=== PATIENT | female | born 1970 | race Two or more races ===

== ENCOUNTER → 2020-07-08 | Day surgery (SDC) | payer OTHER ==
[~2020-07-08] VITALS: Ht 162.6 cm; Wt 87.5 kg
[2020-07-08] VITALS (10 sets, daily range): BP systolic 101–144; BP diastolic 54–72
[~2020-07-08] MED LIST: Atropine Sulfate 0.4mg/ml inj IVP PRN; DOCUSATE SODIU100 MG ORAL; DiphenhydrAMINE 50mg/ml Inj IVP PRN; HYDROcodone/Acetamin 5/325 tab ORAL PRN; HYDROcodone/Acetamin 7.5/325 tab ORAL PRN; Hydromorphone 0.5mg/0.5ml inj IVP PRN; Ketorolac 30mg Inj IV PRN; LORazepam Inj 2mg/ml 1ml IV PRN; LR 1000ml 1,000 ML IVLG SCH; LR 1000ml ONE; Labetalol 5mg/ml 20ml vial IV PRN; Lidocaine 1% Plain 30 ml INJ ONE; Meperidine 25mg/1ml Inj (FOR RIGORS ONLY) IV PRN; Metoclopramide 10mg/2ml Inj IVP PRN; Midazolam 2mg/2ml Inj IVP PRN; fentaNYL 100 mcg/2 mL IV PRN; oxyCODONE HCL/Acetaminophen 5/325mg ORAL PRN
--- NOTE | 2020-07-08 08:47 | Short Stay Surgery H&P ---
History of Present Illness History of Present Illness Chief Complaint Abdominal pains/GERDs/heartburn KEVIN Hensley is a 49 year old female who was admitted on for GERD/abdominal pain Patient History Allergies: Coded Allergies: No Known Allergies (Unverified , 07/04/20) PAST MEDICAL HISTORY: (1) Hypertension (2) History of Review of Systems Cardiovascular: Reports: hypertension Respiratory: Reports: no symptoms Skeletal: Reports: trauma Gastrointestinal: Reports: gastro esophageal reflux disease Genitourinary: Reports: no symptoms Neurologic: Reports: no symptoms Endocrine: Reports: no symptoms Physical Exam Vital Signs Last Vital Signs Date Time Temp Pulse Resp B/P (MAP) Pulse Ox O2 Delivery O2 Flow Rate FiO2 07/08/20 08:41 Room Air Skin: normal HENT: normal Heart: normal Lungs: normal Abdomen: abnormal Extremities: normal Genitourinary: normal Plan Plan of Care Upper GI. endoscopy and biopsy. Preop Interventions None. Summary of Findings See the reports. Attestation Are the patient's medical conditions optimized for surgery? Attestation Response: yes Rigo Chaparro MD Jul 08, 2020 08:47
--- NOTE | 2020-07-08 08:48 | Pre-Procedure Note/Attestation ---
Pre-Procedure Note/Attestation Complete Prior to Procedure Planned Procedure: left Procedure Narrative: Examination of the upper GI tract via endoscopy with obtaining biopsy. Indications for Procedure Pre-Operative Diagnosis: R/O Gastritis/peptic ulcer/esophagitis Attestation I attest that I discussed the nature of the procedure; its benefits; risks and complications; and alternatives (and the risks and benefits of such alternatives), prior to the procedure, with the patient (or the patient's legal practice representative). I attest that, if there was a reasonable possibility of needing a blood transfusion, the patient (or the patient's legal practice representative) was given the [place] Department [employer] Services standardized written summary, pursuant to the Yovani Philippe Blood Safety Act ([place] Health and Safety Code # 1645, as amended). I attest that I re-evaluated the patient just prior to the surgery and that there has been no change in the patient's H&P, except as documented below: Rigo Chaparro MD Jul 08, 2020 08:48
--- NOTE | 2020-07-08 08:49 | Discharge Instructions ---
Discharge Instructions Discharge Instructions Follow up with: Make appointment to see the doctor in office in two weeks. For Congestive Heart Failure Reminder Report to your physician any weight gain of 5 pounds or more in one week. Rigo Chaparro MD Jul 08, 2020 08:49
--- NOTE | 2020-07-08 09:18 | Anethesia Preoperative Eval ---
Anesthesia Pre-op PMH/ROS General Date of Evaluation: Jul 08, 2020 Time of Evaluation: 09:43 Anesthesiologist: Melani ASA Score: ASA 3 Mallampati Score Class I : Soft palate, uvula, fauces, pillars visible Class II: Soft palate, uvula, fauces visible Class III: Soft palate, base of uvula visible Class IV: Only hard plate visible Mallampati Classification: Class II Surgeon: Krysta Diagnosis: Abd Pain Surgical Procedure: EGD/Colonoscopy Anesthesia History: none Family History: no anesthesia problems Allergies: Coded Allergies: No Known Allergies (Unverified , 07/04/20) Medications: see eMAR Patient NPO?: Yes Past Medical History Cardiovascular: Reports: HTN Gastrointestinal/Genitourinary: Reports: GERD, other - Fatty Liver HEENT: Reports: other - Asigmatism Hematology/Immune: Reports: anemia PSxH Narrative: C/S Anesthesia Pre-op Phys. Exam Physician Exam Last Vital Signs Date Time Temp Pulse Resp B/P (MAP) Pulse Ox O2 Delivery O2 Flow Rate FiO2 07/08/20 08:41 Room Air 07/08/20 08:41 97.0 56 18 144/54 97 Constitutional: NAD Neurologic: CN 2-12 intact Cardiovascular: RRR Respiratory: CTA Gastrointestinal: S/NT/ND Airway Exam Mallampati Score: Class II MO: full ROM: limited Teeth: missing, intact Anesthesia Pre-op A/P Risk Assessment & Plan Assessment: ASA 3 Plan: TIVA Status Change Before Surgery: No Donavon Polo MD Jul 08, 2020 09:18
--- NOTE | 2020-07-08 09:18 | Immediate Post-Op Evaluation ---
Immediate Post-Op Evalulation Immediate Post-Op Evalulation Procedure: EGD Date of Evaluation: Jul 08, 2020 Time of Evaluation: 10:28 IV Fluids: 600 LR Blood Products: 0 Estimated Blood Loss: 1 Urinary Output: 0 Blood Pressure Systolic: 111 Blood Pressure Diastolic: 71 Pulse Rate: 63 Respiratory Rate: 16 O2 Sat by Pulse Oximetry: 100 Temperature (Fahrenheit): 97.4 Pain Score (1-10): 1 Nausea: No Vomiting: No Complications 0 Patient Status: awake, reacts, patent, none Hydration Status: adequate Donavon Polo MD Jul 08, 2020 09:18
--- NOTE | 2020-07-08 09:19 | 48 Hour Post Anesthesia Eval ---
Post Anesthesia Evaluation Procedure: EGD Date of Evaluation: Jul 08, 2020 Time of Evaluation: 12:38 Blood Pressure Systolic: 127 0: 73 Pulse Rate: 69 Respiratory Rate: 18 Temperature (Fahrenheit): 98 O2 Sat by Pulse Oximetry: 100 Airway: patent Nausea: No Vomiting: No Pain Intensity: 1 Hydration Status: adequate Cardiopulmonary Status: Stable Mental Status/LOC: patient returned to baseline Follow-up Care/Observations: 0 Post-Anesthesia Complications: 0 Follow-up care needed: ready to discharge Donavon Polo MD Jul 08, 2020 09:19
--- NOTE | 2020-07-08 09:53 | Endoscopy Procedure Note ---
Endoscopy Procedure Note General Indication for Procedure: Abdominal pains/GERDs. Procedures Performed: EGD - Mild gastritis;otherwise normal upper GI. endoscopy, biopsy ws taken from gastric body. Specimen: yes Pt Tolerated Procedure Well: Yes Estimated Blood Loss: none Anesthesia Anesthesiologist: Dr. Davis Anesthesia: moderate sedation Medications Medication Given: see anesthesia record Inserted Devices Implant(s) used?: No Quality Quality of Bowel Preparation: Excellent Was there any complications?: No GI Core Measures 50 yrs or older w/o bx or poly: Not Applicable 10yrs. F/U recommended: Not Applicable If not recommended, why?: Med reason:<3 yrs.: System Reason:<3 yrs.: Rigo Chaparro MD Jul 08, 2020 09:53
--- NOTE | 2020-07-08 11:44 | Procedure Note ---
DATE OF PROCEDURE: 07/08/2020 SURGEON: Rigo Chaparro MD. PROCEDURE: Esophagogastroduodenoscopy with biopsy. PREOPERATIVE DIAGNOSES: Abdominal pain, epigastric pain, history of chronic reflux, questionable status of Helicobacter pylori infection. POSTOPERATIVE DIAGNOSIS: Evidence of mild gastritis otherwise completely normal upper GI endoscopy. Biopsy was taken per random from gastric body. MEDICATION USED: Per Dr. Polo anesthesiologist. INSTRUMENT: GIF Olympus upper GI video endoscope. DESCRIPTION OF PROCEDURE: The patient after arriving at the endoscopy unit, was told about risks and benefits of the procedure, which she accepted and signed informed consent. She was then put on the left lateral decubitus position. After adequate IV sedation, the scope was gently passed through the cricopharyngeal area, was lodged into the upper esophagus and was gradually advanced towards gastroesophageal junction. The entire length of esophagus looked normal. No evidence of any pathology such as exudate, stricture, polyps, tumors etc. was found. GE junction also looked completely normal and no evidence of Almaraz's mucosa or hiatal hernia noted. At this time, the scope was advanced into the stomach. Gastric cavity was distended with insufflation of air revealing basically minimal erythema over the gastric mucosa consistent with very mild gastritis but there was no ulcers, tumors, polyps, bleeding site etc. The examination was done gradually from the fundus all the way to the antrum and pre-pyloric area. At this time, one random biopsy from gastric body was obtained. The retroflexion maneuver was also applied and the area of the gastroesophageal junction was examined in a retrograde fashion, which revealed no other abnormalities. Finally, scope was passed through the pylorus. First and second portion of duodenum were found to be completely normal. At this time, the scope was pulled out and the procedure was terminated. The patient tolerated the procedure well and left the endoscopy room in a good condition. Rigo Chaparro M.D. DR: Nando JOB#: [id number] CC:
--- NOTE | 2020-07-08 13:29 | Pre-op HX & Phy Repo 2 SIG ---
DATE OF ADMISSION: 07/08/2020 HISTORY OF PRESENT ILLNESS: The patient is a 49-year-old non-Bahamian speaking female who I am seeing at this time before undergoing the procedure for upper GI endoscopy for which she has been scheduled to receive for evaluation of gastrointestinal symptoms that she has had subsequent to her work injury. The patient at this time reports that she is experiencing gastroesophageal acid reflux consistent with GERD for which I had the opportunity of examining her a few weeks ago in the office as well. At this time, she reports that the pain is radiating towards her chest area and they are intermittent in nature as she has been trying to constantly take medications such as Prevacid which seems to be helpful and make her gastroesophageal reflux more controlled. She reports that she does not have the tolerance for taking spicy foods as her symptoms become more aggravated. 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 At this time, she denies having vomited bright red blood or passing bright red blood per rectum. There has been no history of black stools or melena. She denies having had any changes in her weight as her appetite seems to be normal. She however complains of a recent history of constipation for which she takes laxative with good response. However, she has not had any rectal bleeding. She reports also that she has been seen by other physician by name of Dr. Giovanni Ba who has been following her for gastrointestinal conditions and found that there has been a history of Helicobacter pylori infection in the past but it is not clear if she has ever been treated adequately or not. The purpose of this examination today is to evaluate the stomach with gastric biopsy to look for this organism. The patient denies having any gastrointestinal conditions before being injured at job site and receiving multiple medications for a long period of time including analgesics such as tramadol and also ibuprofen, etc. PAST MEDICAL HISTORY: The patient denies having had any major medical problems in the past such as peptic ulcer disease, gastritis, hepatitis, pneumonitis, meningitis, pancreatitis, etc. She denies having a history of diabetes or thyroid conditions. She denies having a history of high blood pressure. PAST SURGICAL HISTORY: The patient has had 1 C section. ALLERGIES: Nonsignificant. FAMILY HISTORY: Both parents have . She is single with 3 children who are normal. There was no familial conditions. HABITS: She denies drinking alcohol, smoking cigarettes, does not use illicit drugs. MEDICATIONS: List of present medications, the patient is taking Prevacid 15 mg on a daily basis, Aleve 200 mg twice a day for bodily pain subsequent to work injury and also she takes Geeta-Colace for constipation. REVIEW OF SYSTEMS: Basically history of present illness. She denies having any chest pain, shortness of breath. However, she complains of experiencing pain over her neck and shoulders and she has also had injuries over her lower back area as well. Psychologically, she denies having any psychological problems such as anxiety or stress or depressive moods, etc. Neurologically, she complains of numbness and tingling sensation, etc. except occasionally which is not that significant. PHYSICAL EXAMINATION: GENERAL: At this time reveals alert, well-oriented female, who does not seem to be in any acute distress and she answers her questions quite properly. VITAL SIGNS: Blood pressure 144/54, pulse rate 56 per minute, respirations 18 per minute per minute, temperature 97.0, oxygen saturation 97% on room air. HEENT: Normocephalic. Pupils are equal in size and reactive to light and accommodation. No visible jaundice. Buccal cavity, tongue midline, well hydrated. No ulcers. NECK: Supple. No JVD, thyromegaly, or adenopathy. CHEST: Clear to auscultation and percussion. No rales or rhonchi. HEART: S1, S2 normal. Regular rhythm. No gallops or murmur. ABDOMEN: Soft but there is moderate tenderness over the epigastric area but there is no organomegaly, masses, rebound phenomenon. Bowel sounds are adequately heard. EXTREMITIES: Within normal limits. CENTRAL NERVOUS SYSTEM: Grossly normal. SKIN AND LYMPHATICS: Nonsignificant. INITIAL PREOPERATIVE DIAGNOSES: 1. Epigastric pain of uncertain etiology, rule out gastroesophageal acid reflux, rule out NSAID-induced gastropathy such as peptic ulcer disease, esophagitis, gastritis. 2. History of Helicobacter pylori infection, status of the infection. 3. Constipation, mild under good control. 4. History of bodily injury, work related. RECOMMENDATION: The applicant at this time seems to be quite stable to undergo the procedure of upper GI endoscopy for which she has been scheduled. She understands the risks and benefits and will sign the consent. Said Leslie Chaparro DR: Nando JOB#: [id number] CC:
== END | disposition home or self-care (01) ==
LOC: GAS 08:18
DX: K29.70 Gastritis, unspecified, without bleeding (principal); K21.9 Gastro-esophageal reflux disease without esophagitis; I10 Essential (primary) hypertension; D64.9 Anemia, unspecified; Z87.11 Personal history of peptic ulcer disease; Z86.61 Personal history of infections of the central nervous system; K59.00 Constipation, unspecified
CPT/HCPCS: 43239; 94003; J2001; J2250; J2704; J7120; U0004; 94150